=== PATIENT | female | born 1995 | race Caucasian/White ===

== ENCOUNTER 2019-01-16 16:23 | Emergency (ER) | payer BC ==
[~2019-01-16] VITALS: Ht 175.3 cm; Wt 106.6 kg
[2019-01-16 16:40] VITALS: BP_SYST 139
[2019-01-16 18:10] VITALS: BP_SYST 139
== END 2019-01-16 18:10 | disposition home or self-care (01) ==
LOC: SED 16:23
DX: S00.83XA Contusion of other part of head, initial encounter (principal); R03.0 Elevated blood-pressure reading, without diagnosis of hypertension; W22.8XXA Striking against or struck by other objects, initial encounter; Y93.89 Activity, other specified; Y92.89 Other specified places as the place of occurrence of the external cause; Y99.8 Other external cause status
CPT/HCPCS: 81025; 99282